=== PATIENT | female | born 1995 | race Caucasian/White ===

== ENCOUNTER → 2017-02-16 | Outpatient (CLI) | payer OTHER ==
[~2017-02-16] VITALS: Ht 162.6 cm; Wt 56.2 kg
[~2017-02-16] MED LIST: BACTRIM DS 8001 TAB PO; NO HOME MEDICATIONS
[2017-02-16 10:38] VITALS: BP 145/93; PULSE 83
[2017-02-16 11:49] VITALS: BP 158/95; PULSE 92
== END ==
LOC: COL.RAD 10:24
DX: E04.1 Nontoxic single thyroid nodule (principal); R93.8 Abnormal findings on diagnostic imaging of other specified body structures

== ENCOUNTER → 2017-03-25 | Outpatient (CLI) | payer OTHER ==
[~2017-03-25] VITALS: Ht 162.6 cm; Wt 56.8 kg
[2017-03-25 10:01] VITALS: BP 134/97; PULSE 65
== END ==
LOC: COL.RAD 09:46
DX: E04.1 Nontoxic single thyroid nodule (principal); R22.1 Localized swelling, mass and lump, neck
CPT/HCPCS: Q9967